=== PATIENT | female | born 1990 | race Caucasian/White ===

== ENCOUNTER 2021-02-17 12:42 | Emergency (ER) | payer BC, SELFPAY ==
--- NOTE | 2021-02-17 13:18 | NUR.NOTE ---
1240: RN went to waiting room to get pt pt with registration still completing the process pt stated not ready yet Nursing Note:
[2021-02-17 13:23] VITALS: BP 105/59; PULSE 76; TEMP 37.3; O2SAT 99
--- NOTE | 2021-02-17 13:31 | ED.GENADUL_ITS ---
Discharge Plan Disposition Patient Disposition: HOME Condition: Stable Discharge Details Clinical Impression: Ankle sprain Primary Care Provider: Unknown,Unknown ED Provider: Simoen Ratliff Home Meds and New Rx's Prescriptions: Continued doxycycline hyclate 100 mg Tablet 100 mg PO BID RF: 0 Discharge Instructions Instructions: Ankle Sprain (ED) Additional Instructions: As we discussed, my unofficial read of your x-ray is unremarkable but we are awaiting the official read. If positive I will personally notify you. Otherwise wear splint as needed, advance activity as tolerated. [id number] Tylenol and/or Motrin as directed for discomfort. Rest, elevate, cool compresses every 2 hours for 20 minutes. Medical Decision Making 30-year-old female presents with right ankle injury that occurred yesterday. No obvious signs of deformity or dislocation. Likely sprain versus fracture. Will obtain x-ray. Patient comfortable with this plan. X-ray read by me negative. Awaiting official radiology report Discussed official x-ray results with patient. She is comfortable with a lace up splint, declines crutches. She would like to be discharged now before the official read is obtained, I will contact her if the x-ray is positive. After discharged home, official x-ray report came back as soft tissue swelling, no fracture seen HPI General Mode of arrival: ambulatory . Date/Time Provider Initiated Documentation: 02/17/21 13:30 . Limitations to Documentation: no limitations . Information obtained by: patient . HPI Narrative: This is a 30-year-old female, denies significant past medical history, presenting for right ankle injury, twisting, that occurred yesterday. She reports lateral discomfort, swelling, bruising, mild in nature but worse with movement or ambulation. Denies any other injury. Denies numbness, tingling, weakness. She is able to bear weight. Related Data Home Medications Medication Instructions Recorded Confirmed doxycycline hyclate 100 mg PO BID 02/17/21 02/17/21 Allergies Allergy/AdvReac Type Severity Reaction Status Date / Time No Known Allergies Allergy Unverified 02/17/21 13:26 General Stated Complaint: Orthopedic ROCHELLE: 4 Review of Systems Constitutional Constitutional: Denies weakness Musculoskeletal Musculoskeletal: Denies deformity, Reports arthralgias, Denies numbness, Reports stiffness and Denies tingling Integumentary/Breasts Skin/Breast: Denies erythema Neurologic Neurologic: Denies numbness, Denies tingling and Denies weakness [facility] Social History Smoking/Tobacco Use Status: Former Tobacco Use Smoking risk assessment performed?: Yes Drug use: Never Substance use type: does not use Do you feel safe at home: Yes Do you feel safe in your relationship?: Yes Exam Const General: cooperative, healthy appearing, comfortable and no acute distress Orientation: alert and awake [facility] Head: normal to inspection, normocephalic and atraumatic Eyes Conjunctivae: conjunctivae normal Neck Neck: normal visual inspection, trachea midline and supple Resp Effort & Inspection: normal respiratory effort and able to speak in complete sentences Cardio Rate: regular rate Rhythm: regular rhythm Skin General skin exam: no rashes or lesions noted Neuro General: patient alert, patient awake, moves all extremities and no focal motor deficits Sensory Exam: no sensory deficits noted Extrem General: full ROM and capillary refill normal Right lower extremity: full ROM, normal capillary refill, ankle Details: abnormal to inspection, tenderness, swelling, normal ROM and ecchymosis and foot Details: normal capillary refill, normal to inspection and toes with normal ROM; no tenderness Ankle/foot/toe images: 1. Diffuse mild swelling, ecchymosis, tenderness. There is no bony point tenderness. Neuro, vascular, tendon intact. Full range of motion. Normal capillary refill and dorsalis pedal pulse Psych Appearance: grossly normal Mental Status: mental status grossly normal Course Vital Signs Vital signs: Vital Signs Temperature 37.3 C 02/17/21 13:23 Pulse 76 02/17/21 13:23 Blood Pressure 105/59 L 02/17/21 13:23 Pulse Oximetry 99 02/17/21 13:23 Temperature 37.3 C 02/17/21 13:23 Temperature Source Temporal Artery Scan 02/17/21 13:23 Pulse 76 02/17/21 13:23 Respiratory Effort Non-Labored 02/17/21 13:28 Blood Pressure 105/59 L 02/17/21 13:23 Blood Pressure Position Sitting 02/17/21 13:23 Pulse Oximetry 99 02/17/21 13:23 Oxygen Delivery Method Room Air 02/17/21 13:23 Oxygen Flow Rate 0 02/17/21 13:23 Pain Level 3 02/17/21 13:25
--- NOTE | 2021-02-17 13:42 | DI.RAD_ITS ---
Exam(s) XR ANKLE RT COMPLETE EXAM: XR ANKLE RT COMPLETE CLINICAL HISTORY: pain. TECHNIQUE: 2D digital imaging was performed. COMPARISON: No exams were available for comparison FINDINGS: There is lateral soft tissue swelling but no evidence of fracture or widening of the mortise. Talar dome unremarkable. No obvious degenerative changes in the ankle and subtalar joint. IMPRESSION: Lateral soft tissue swelling. No fractures. DATA REPOSITORY: RADIATION DOSE DELIVERED:
--- NOTE | 2021-02-17 15:02 | DI.VRAD_ITS ---
PROCEDURE INFORMATION: Exam: XR Right Ankle Exam date and time: 02/17/2021 1:31 PM Age: 30 years old Clinical indication: Right; Patient HX: Fall. Pain lateral ankle TECHNIQUE: Imaging protocol: XR Right ankle. Views: 3 or more views. COMPARISON: No relevant prior studies available. FINDINGS: Bones/joints: No fracture or other acute bony abnormalities are seen. Soft tissues: There is soft tissue swelling over the lateral malleolus. IMPRESSION: Soft tissue swelling. No fracture seen. Dictated and Authenticated by: Augusto Joaquin MD. Ordering:KHADIJAH Abreu MD
== END 2021-02-17 15:13 | disposition home or self-care (01) ==
PROVIDERS: Emergency Provider Physician Assistant
DX: S93.491A Sprain of other ligament of right ankle, initial encounter (principal); X50.1XXA Overexertion from prolonged static or awkward postures, initial encounter
CPT/HCPCS: 29515; 99283; 73610

== ENCOUNTER 2025-03-21 12:52 | Outpatient (CLI) | payer BC, SELFPAY ==
--- NOTE | 2025-03-21 13:16 | DI.RAD_ITS ---
Exam(s) XR THUMB RT EXAM: XR THUMB RT CLINICAL HISTORY: PAIN RT THUMB M79.644 WET READ. TECHNIQUE: 2D digital imaging was performed. Three views. COMPARISON: No exams were available for comparison FINDINGS: BONES: No acute fracture is present. No bony destructive lesion is seen. JOINTS: No dislocation present. SOFT TISSUE: Normal. IMPRESSION: No evidence of acute fracture, dislocation, or subluxation. DATA REPOSITORY: RADIATION DOSE DELIVERED:
== END 2025-03-21 13:12 ==
LOC: DI 12:52
PROVIDERS: Visit Provider Nurse Practitioner Family
DX: M79.645 Pain in left finger(s) (principal)
CPT/HCPCS: 73140